=== PATIENT | male | born 1975 | race Caucasian/White ===

== ENCOUNTER → 2016-11-03 | Outpatient (CLI) | payer BC ==
[~2016-11-03] MED LIST: BENADRYL25 MG PO; Doxycycline PO; EXCEDRIN MIGRA1 EAC3 PO; LYRICA100 MG PO; LYRICA75 MG PO; MOTRIN800 MG PO; PERCOCET 5/31 TABLET PO; PROPRANOLOL HCL60 MG PO; Percocet 5/325,Endoc PO; REQUIP1 MG PO; TREXIMET 85-1 TABLET PO; ULTRAM50 MG PO; VITAMIN D250000 UNIT PO; ZYRTEC5 MG PO; Zofran PO
== END | disposition home or self-care (01) ==
LOC: EEG 08:54
DX: R43.9 Unspecified disturbances of smell and taste (principal)
CPT/HCPCS: 95954